=== PATIENT | male | born 2000 | race Caucasian/White ===

== ENCOUNTER 2020-03-09 10:16 | Emergency (ER) | payer OTHER ==
[~2020-03-09] VITALS: Ht 182.9 cm; Wt 81.8 kg
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
[2020-03-09] MEDS ORDERED: CYCL-707 PO (12:24)
[2020-03-09 12:44] VITALS: BP 137/58
== END 2020-03-09 12:45 | disposition home or self-care (01) ==
LOC: EDBD 10:16 → M ED 10:16
DX: Z04.1 Encounter for examination and observation following transport accident (principal); Z88.0 Allergy status to penicillin